=== PATIENT | male | born 1960 ===

== ENCOUNTER 2020-11-19 16:38 | Emergency (ER) | payer MEDICAID ==
[~2020-11-19] VITALS: Ht 185.4 cm; Wt 121.3 kg
[2020-11-19 17:16] VITALS: BP 119/71
== END 2020-11-19 19:14 | disposition home or self-care (01) ==
LOC: ED 19:08
DX: M25.461 Effusion, right knee (principal); G89.11 Acute pain due to trauma; W18.30XA Fall on same level, unspecified, initial encounter; Y93.89 Activity, other specified; Y92.328 Other athletic field as the place of occurrence of the external cause; Y99.8 Other external cause status
CPT/HCPCS: 29505; 99283